=== PATIENT | female | born 1990 | race Two or more races ===

== ENCOUNTER 2024-09-29 01:33 | Emergency (ER) | payer MEDICAID ==
[~2024-09-29] VITALS: Ht 157.5 cm; Wt 54.4 kg
[2024-09-29] MEDS ORDERED: MAGNESIUM HYDROXIDE 30 ML UDC ONE (03:20)
[2024-09-29] MEDS: MAGNESIUM CITRATE 296 ML BOTTLE PO ONE (03:23)
[2024-09-29] MEDS: MAGNESIUM HYDROXIDE 30 ML UDC PO ONE (03:23)
[2024-09-29] MEDS ORDERED: BISACODYL SUPP (10 MG) 10 MG/SUPP.RECT SUPP.RECT RC ONE (03:41)
[2024-09-29] MEDS: BISACODYL SUPP (10 MG) 10 MG/SUPP.RECT SUPP.RECT RC ONE (03:47)
[2024-09-29] MEDS: POLYETHYLENE GLYCOL 3350 17 GM POWD.PACK PO ONE (03:48)
[2024-09-29] MEDS ORDERED: BISA10SU11 RC (04:28)
[2024-09-29] MEDS ORDERED: MAGN400O21 PO (04:28)
[2024-09-29 04:32] VITALS: BP 126/72; TEMP 98.1; O2SAT 99
== END 2024-09-29 04:32 | disposition home or self-care (01) ==
LOC: ER 01:44
DX: K59.00 Constipation, unspecified (principal); R10.30 Lower abdominal pain, unspecified